=== PATIENT | female | born 1990 | race Caucasian/White ===

== ENCOUNTER 2016-12-30 10:44 | Emergency (ER) | payer OTHER ==
[2016-12-30 12:20] VITALS: BP 118/72
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
--- NOTE | 2016-12-30 13:01 | RAD ---
INDICATION: Left elbow injury. TECHNIQUE: 4 views of the left elbow were obtained. FINDINGS: The bones are in normal alignment. No joint effusion or fracture is seen. Joint spaces appear maintained. IMPRESSION: NO EVIDENCE FOR FRACTURE.
== END 2016-12-30 13:22 | disposition home or self-care (01) ==
LOC: UCCORT 10:44
DX: S50.02XA Contusion of left elbow, initial encounter (principal); S53.402A Unspecified sprain of left elbow, initial encounter; V92.09XA Drowning and submersion due to fall off unspecified watercraft, initial encounter; Y93.89 Activity, other specified; Y92.9 Unspecified place or not applicable; Z88.1 Allergy status to other antibiotic agents
CPT/HCPCS: 99212; G0463